=== PATIENT | male | born 1985 | race Two or more races ===

== ENCOUNTER 2020-08-27 02:49 | Emergency (ER) | payer SELFPAY ==
[~2020-08-27] VITALS: Ht 154.9 cm; Wt 70.0 kg
--- NOTE | 2020-08-27 03:23 | RAD ---
3 various HISTORY: Pain AP lateral oblique views The visualized osseous structures appear normal. IMPRESSION: No acute findings. Electronically signed by: Deven Mera III, MD (08/27/2020 3:20 AM) [facility]
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
[2020-08-27 08:58] VITALS: BP 109/62
== END 2020-08-27 10:00 | disposition home or self-care (01) ==
LOC: ER 02:49
DX: S60.211A Contusion of right wrist, initial encounter (principal); S00.83XA Contusion of other part of head, initial encounter; F17.200 Nicotine dependence, unspecified, uncomplicated; F10.20 Alcohol dependence, uncomplicated; Y90.9 Presence of alcohol in blood, level not specified; Y08.89XA Assault by other specified means, initial encounter; Y93.89 Activity, other specified; Y92.89 Other specified places as the place of occurrence of the external cause; Y99.8 Other external cause status
CPT/HCPCS: 29125; 73110; 99285